=== PATIENT | male | born 1965 | race Caucasian/White ===

== ENCOUNTER 2017-12-08 15:20 | Emergency (ER) | payer OTHER ==
[~2017-12-08] VITALS: Ht 170.2 cm; Wt 113.4 kg
[2017-12-08 15:43] VITALS: Ht 170.2 cm; Wt 113.4 kg
[2017-12-08 19:24] VITALS: BP 115/72
== END 2017-12-08 19:24 | disposition home or self-care (01) ==
LOC: ED 15:20
DX: G89.29 Other chronic pain (principal); M79.604 Pain in right leg; F17.210 Nicotine dependence, cigarettes, uncomplicated

== ENCOUNTER 2017-12-09 02:29 | Emergency (ER) | payer OTHER ==
[~2017-12-09] VITALS: Ht 180.3 cm; Wt 117.9 kg
[2017-12-09 06:18] VITALS: BP 119/65
== END 2017-12-09 06:18 | disposition home or self-care (01) ==
LOC: ED 02:29
DX: G89.29 Other chronic pain (principal); M79.604 Pain in right leg; T87.89 Other complications of amputation stump
CPT/HCPCS: J2270